=== PATIENT | male | born 1985 | race African-American/Black ===

== ENCOUNTER 2022-09-15 19:08 | Outpatient (REF) | payer SELFPAY ==
[2022-09-15 19:09] VITALS: BP 159/116; PULSE 129; RESP 18; TEMP 36.5; O2SAT 96; BMI 26.1
--- NOTE | 2022-09-15 20:10 | CT_ITS ---
INDICATION: Injury/Pain EXAMINATION: CT CERVICAL SPINE - CT Spine Cervical W/O Contrast Injection TECHNIQUE: Helically acquired images were obtained of the cervical spine. 2D reformatted images were reviewed. A radiation dose optimization technique was used for this scan. IV Contrast dosage and agent: None. COMPARISON: None. FINDINGS: VERTEBRAE: No fracture or traumatic subluxation. No discrete lytic or blastic abnormality. Normal alignment. Normal craniocervical junction and cervicothoracic junction. DISCS and SPINAL CANAL: Disc heights are preserved. No critical stenosis. NECK SOFT TISSUES: No prevertebral soft tissue swelling. There is no cervical adenopathy. LUNG APICES: Clear. CT/Spine Cervical without Contras IMPRESSION: No evidence of acute cervical spinal fracture or spondylolisthesis. Electronically Signed: Jacques Jerry MD at 20:48 EDT ,
--- NOTE | 2022-09-15 20:10 | CT_ITS ---
EXAMINATION : Head CT w/out contrast HISTORY : Injury/Pain COMPARISON : None. TECHNIQUE : Multiple contiguous axial images were obtained from the skull base to the vertex without intravenous contrast. A radiation dose optimization technique was used for this scan. FINDINGS : The ventricles and sulci are normal in size. There is no evidence for acute intracranial hemorrhage, mass effect, or midline shift. There is no extra-axial fluid collection. There is normal arnold-white differentiation, without CT evidence of acute ischemia or infarct. The skull base and calvarium are unremarkable. The orbits are unremarkable. The paranasal sinuses are clear. The mastoid air cells are well-aerated. The soft tissues are unremarkable. CT/Brain/Head without Contrast IMPRESSION: No acute intracranial abnormality. Electronically Signed: Jacques Jerry MD at 20:48 EDT ,
--- NOTE | 2022-09-15 20:10 | CT_ITS ---
INDICATION: Trauma EXAMINATION: CT FACIAL BONES - CT Maxillofacial W/O Contrast Injection TECHNIQUE: Helically acquired images were obtained of the facial bones. A radiation dose optimization technique was used for this scan. IV Contrast dosage and agent: None. COMPARISON: None. FINDINGS: SOFT TISSUES: No focal subcutaneous swelling. No discrete fluid collections. VISUALIZED PARANASAL SINUSES: Moderate mucosal thickening of bilateral maxillary sinuses and multiple ethmoid air cells. VISUALIZED MASTOID AIR CELLS: Clear. FACIAL BONES, MANDIBLE AND TMJs: No displaced facial bone fracture. No lytic or blastic abnormality. VISUALIZED DENTITION: No periodontal osseous erosion. ORBITAL CONTENTS: Both globes, extraocular muscles and retrobulbar fat appear unremarkable. CT/Sinus/Facial Bone IMPRESSION: No acute fracture. Moderate bilateral maxillary sinusitis and ethmoid sinusitis. Electronically Signed: Jacques Jerry MD at 20:49 EDT ,
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
== END 2022-09-15 21:31 ==
LOC: ED 19:08
PROVIDERS: Visit Provider Emergency Medicine
DX: S16.1XXA Strain of muscle, fascia and tendon at neck level, initial encounter (principal); R11.0 Nausea; S00.83XA Contusion of other part of head, initial encounter; I10 Essential (primary) hypertension; Z23 Encounter for immunization; W22.8XXA Striking against or struck by other objects, initial encounter
CPT/HCPCS: 70450; 70486; 72125

== ENCOUNTER 2022-09-20 02:40 | Emergency (ER) | payer OTHER, SELFPAY ==
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
== END 2022-09-20 06:30 | disposition left against medical advice (07) ==
PROVIDERS: Emergency Provider Emergency Medicine; Visit Provider Emergency Medicine
DX: F10.129 Alcohol abuse with intoxication, unspecified (principal); I10 Essential (primary) hypertension; S05.12XA Contusion of eyeball and orbital tissues, left eye, initial encounter; F17.220 Nicotine dependence, chewing tobacco, uncomplicated; Y90.9 Presence of alcohol in blood, level not specified
CPT/HCPCS: 99282; A4216

== ENCOUNTER → 2022-11-22 20:27 | Outpatient (REF) | payer SELFPAY | END | disposition home or self-care (01) | LOC: ED 20:27 | DX: Z00.00 Encounter for general adult medical examination without abnormal findings (principal) ==